=== PATIENT | female | born 1985 | race African-American/Black ===

== ENCOUNTER 2023-05-12 14:42 | Emergency (ER) | payer OTHER ==
[~2023-05-12] VITALS: Ht 177.8 cm; Wt 113.0 kg
[2023-05-12] MEDS: ONDANSETRON HCL 4MG/2ML INJ IV ONE (15:01)
[2023-05-12] MEDS: MORPHINE SULFATE 4 MG/ML CPJ (NOT FOR IM USE) IV ONE (15:01)
[2023-05-12] MEDS: FENTANYL CITRATE/PF 50MCG/ML 2ML VIAL IV ONE (15:35)
[2023-05-12 16:30] VITALS: O2SAT 100
[2023-05-12] MEDS: PROPOFOL 200MG/20ML VIAL IV ONE ×2 (16:40→19:05)
[2023-05-12] MEDS: FENTANYL CITRATE/PF 50MCG/ML 2ML VIAL IV NR (17:14)
[2023-05-12 17:19] LABS: BASOPHILS % 0.7 % (0.0-2.0); EOSINOPHILS % 0.5 % (0.0-5.0); HEMATOCRIT. 38.2 % (36.0-48.0); HEMOGLOBIN. 12.6 g/dL (12.0-16.0); LYMPHOCYTES % 15.9 % (20.0-50.0); MEAN CORPUSCULAR HEMOGLOBIN 30.9 pg (28.0-32.0); MEAN CORPUSCULAR HGB CONC 33.1 g/dL (31.0-37.0); MEAN CORPUSCULAR VOLUME 93.4 fL (81.0-99.0); MEAN PLATELET VOLUME 7.4 fl (7.4-10.4); MONOCYTES % 6.5 % (2.0-8.0); NEUTROPHILS % 76.4 % (40.0-76.0); PLATELET 364 x1000/uL (130-400); RED BLOOD CELL COUNT 4.09 mill/uL (4.2-5.4); RED CELL DISTRIBUTION WIDTH 12.9 % (11.6-14.6); WHITE BLOOD COUNT 9.8 x1000/uL (4.5-11.0)
[2023-05-12 17:33] LABS: ALANINE AMINOTRANSFERASE 22 IU/L (10-49); ALBUMIN 4.4 g/dL (3.2-4.8); ASPARTATE AMINOTRANSFERASE 26 IU/L (<34); BILIRUBIN TOTAL 0.7 mg/dL (0.1-1.0); CALCIUM 9.4 mg/dL (8.7-10.4); CARBON DIOXIDE 22 mEq/L (21-32); CHLORIDE 109 mEq/L (98-107); CREATININE 0.8 mg/dL (0.6-1.0); GLUCOSE 95 mg/dL (70-105); POTASSIUM 3.5 mEq/L (3.5-5.1); PROTEIN TOTAL 7.3 g/dL (6.0-8.3); SODIUM 138 mEq/L (136-145); UREA NITROGEN BLOOD 8 mg/dL (9-23)
[2023-05-12 17:41] LABS: PROTHROMBIN TIME 10.5 sec (9.6-11.0)
[2023-05-12] MEDS ORDERED: OXYC-100 MT (18:22)
[2023-05-12] MEDS: HYDROMORPHONE HCL/PF 2MG/ML CPJ IV NR (19:03)
[2023-05-12 20:24] VITALS: BP 176/113; PULSE 75; RESP 18; TEMP 98.4
== END 2023-05-12 20:18 | disposition home or self-care (01) ==
LOC: ER 14:53
DX: S82.891A Other fracture of right lower leg, initial encounter for closed fracture (principal); W18.39XA Other fall on same level, initial encounter; Y93.89 Activity, other specified; Y92.89 Other specified places as the place of occurrence of the external cause; Y99.8 Other external cause status
CPT/HCPCS: 80053; 85025; 85610; 86850; 86900; 86901; 36415; 73560; 73590; 73600; 73620; 93005; 27818; 96374; 96375; 99152; 99285; J3010; J2405; J2704; J1170; J2270; Z7610 ×2